=== PATIENT | female | born 1980 | race Two or more races ===

== ENCOUNTER 2022-03-30 21:39 | Emergency (ER) | payer SELFPAY ==
[~2022-03-30] VITALS: Ht 157.5 cm; Wt 62.6 kg
[2022-03-30 21:54] VITALS: BP 132/89
--- NOTE | 2022-03-30 22:03 | NUR ---
TO LOBBY FOLLOWING TRIAGE
--- NOTE | 2022-03-30 23:15 | NUR ---
Dr. Brown examining patient.
[2022-03-30] MEDS ORDERED: BACITRACIN OINT 500 UNITS/GM PKT TP ONE (23:20)
[2022-03-30] MEDS ORDERED: KETOROLAC 30 MG/ML VIAL IM ONE (23:20)
[2022-03-30] MEDS ORDERED: BACI-416 TP (23:22)
[2022-03-30] MEDS ORDERED: NAPR-54 PO (23:22)
[2022-03-31 00:08] VITALS: BP 127/89
--- NOTE | 2022-03-31 00:08 | NUR ---
Patient discharged with v/s stable. Written and verbal after care instructions given and explained. Patient alert, oriented and verbalized understanding of instructions. Ambulatory with to car. All questions addressed prior to discharge. ID band removed. Patient advised to follow up with PMD. Rx of Bacitracin and Naproxen given. Patient educated on indication of medication including possible reaction and side effects. Opportunity to ask questions provided and answered.
== END 2022-03-31 00:08 | disposition home or self-care (01) ==
LOC: MED 21:39
DX: T23.102A Burn of first degree of left hand, unspecified site, initial encounter (principal); T31.0 Burns involving less than 10% of body surface
CPT/HCPCS: 16000; 96372; 99283; J1885

== ENCOUNTER 2023-10-18 18:41 | Emergency (ER) | payer SELFPAY ==
[~2023-10-18] VITALS: Ht 152.4 cm; Wt 65.8 kg
[~2023-10-18 18:41] MED LIST: BACI-418 TP; NAPR-337 PO
[2023-10-18 18:58] VITALS: BP 108/73; PULSE 65; RESP 16; TEMP 97.9; O2SAT 98
[2023-10-18 20:49] VITALS: BP 118/78; PULSE 68; RESP 18; TEMP 98.1; O2SAT 99
[2023-10-18] MEDS ORDERED: CEPH-588 PO (21:06)
[2023-10-18] MEDS ORDERED: BACI-418 TP (21:06)
[2023-10-18] MEDS ORDERED: IBUP-2213 PO (21:06)
== END 2023-10-18 21:15 | disposition home or self-care (01) ==
LOC: MED 18:41
DX: L03.011 Cellulitis of right finger (principal); Z79.899 Other long term (current) drug therapy
CPT/HCPCS: 99283